=== PATIENT | female | born 1960 | race Hispanic/Latino ===

== ENCOUNTER → 2017-08-04 | Outpatient (CLI) | payer OTHER ==
[~2017-08-04] MED LIST: ABILIFY PO; CLONAZEPAM1 M1 PO; OMEGA 3 FISH O1 EACH PO; PREMPRO 0.3 MG1 EACH PO; SERTRALINE HCL50 MG PO; VIT D PO; ZOLOFT50 MG PO
--- NOTE | 2017-08-04 14:45 | Diagnostic Imaging Report ---
PROCEDURE: Frontal and lateral views of the chest. COMPARISON: Patients [facility], , CHEST 2 VIEWS, 01/30/2013, 16:41. INDICATIONS: BRONCHITIS FINDINGS: Lines/tubes: None. Lungs: The lungs are well inflated and clear. There is no evidence of pneumonia or pulmonary edema. Pleura: There is no pleural effusion or pneumothorax. Heart and mediastinum: The heart and the mediastinum are normal. Bones: No acute bony abnormality. IMPRESSION: 1. No acute cardiopulmonary abnormalities. Kenji Cabezas M.D. Dictated by: Kenji Cabezas M.D. on 08/04/2017 at 14:44 Electronically approved by: Kenji Cabezas M.D. on 08/04/2017 at 14:44
== END ==
LOC: RAD 12:48
DX: J20.9 Acute bronchitis, unspecified (principal)
CPT/HCPCS: 71046

== ENCOUNTER → 2017-09-21 | Outpatient (CLI) | payer OTHER ==
--- NOTE | 2017-09-21 09:45 | Diagnostic Imaging Report ---
EXAM: DXA BONE DENSITY INDICATIONS: SCREENING FOR OSTEOPORSIS COMPARISON: None. FINDINGS: Left femoral neck bone mineral density (BMD) (g/cm2):0.753 Femur T-score (standard deviation relative to young adult mean BMD):-1 Femur Z-score (standard deviation relative to age-matched control group):0.1 Lumbar bone mineral density (BMD) (g/cm2):0.898 Lumbar T-score (standard deviation relative to young adult mean BMD): -1.4 Lumbar Z-score (standard deviation relative to age-matched control group):-0.1 CONCLUSION: WHO bone mineral classification: Low bone mass (osteopenia). 10 year major osteoporotic fracture risk is 3.5%, with hip fracture is 0.2%. World Health Organization Classification: *The Z-score is provided for informational purposes. The T-score is preferable for clinical decisions. RECOMMENDATIONS: Normal \T\ Osteopenia:Calcium supplementation, daily multiple vitamins, and adequate exercise as preventive measures against osteoporosis. Osteoporosis \T\ Severe Osteoporosis:In addition to the above, pharmacologic therapy. Dictated by: Des Crowe M.D. on 09/21/2017 at 9:46 Electronically approved by: Des Crowe M.D. on 09/21/2017 at 9:46
== END ==
LOC: DX 08:28
DX: Z13.820 Encounter for screening for osteoporosis (principal)
CPT/HCPCS: 77080

== ENCOUNTER → 2017-10-17 | Outpatient (CLI) | payer OTHER ==
--- NOTE | 2017-10-17 12:04 | Diagnostic Imaging Report ---
PROCEDURE:SHOULDER COMPLETE BILATERAL INDICATION:Arthritis, right shoulder pain COMPARISON:None. FINDINGS: Right: No acute, displaced fracture or dislocation. The humeral head projects appropriately adjacent to the glenoid. Acromioclavicular and glenohumeral joint spaces are well-maintained. Soft tissues are unremarkable. Left: No acute, displaced fracture or dislocation. The humeral head projects appropriately adjacent to the glenoid. Acromioclavicular and glenohumeral joint spaces are well-maintained. Soft tissues are unremarkable. CONCLUSION: No acute osseous abnormality. Dictated by: Terry Lim M.D. on 10/17/2017 at 12:06 Electronically approved by: Terry Lim M.D. on 10/17/2017 at 12:06
== END ==
LOC: RAD 11:21
PROVIDERS: ATTEND Internal Medicine
DX: M25.511 Pain in right shoulder (principal); M13.812 Other specified arthritis, left shoulder; M13.811 Other specified arthritis, right shoulder

== ENCOUNTER 2018-02-08 15:00 | Outpatient (RCR) | payer OTHER | END 2018-02-17 | LOC: OT 15:00 | PROVIDERS: ATTEND Specialist | DX: M24.611 Ankylosis, right shoulder (principal) ==

== ENCOUNTER 2018-03-09 14:00 | Outpatient (RCR) | payer OTHER | END 2018-03-19 | LOC: OT 14:00 | PROVIDERS: ATTEND Specialist | DX: M24.611 Ankylosis, right shoulder (principal) | CPT/HCPCS: 97139 ==

== ENCOUNTER 2018-04-18 13:56 | Outpatient (RCR) | payer OTHER | END 2018-04-19 | LOC: OT 13:56 | PROVIDERS: ATTEND Specialist | DX: M24.611 Ankylosis, right shoulder (principal); M25.511 Pain in right shoulder; M25.611 Stiffness of right shoulder, not elsewhere classified; R53.1 Weakness ==

== ENCOUNTER 2018-05-02 15:00 | Outpatient (RCR) | payer OTHER ==
[2018-05-18] MEDS ORDERED: PREMPRO 0.3 MG1 EACH PO (12:14)
[2018-05-18] MEDS ORDERED: VIT D3 PO (12:14)
[2018-05-18] MEDS ORDERED: HYDROXYCHLOROQ200 MG PO (12:15)
[2018-05-18] MEDS ORDERED: ULTRAM50 MG PO (12:16)
[2018-05-18] MEDS ORDERED: CLONAZEPAM1 MG PO (12:17)
[2018-05-18] MEDS ORDERED: SERTRALINE HCL50 MG PO (12:17)
== END 2018-05-19 ==
LOC: OT 15:00
PROVIDERS: ATTEND Specialist
DX: M75.01 Adhesive capsulitis of right shoulder (principal)

== ENCOUNTER → 2018-05-22 | Day surgery (SDC) | payer OTHER ==
[~2018-05-22] MED LIST changes: +CEFAZOLIN SOD 2 GM/D5W 50ML 50 ML IV ONE; +CLONAZEPAM1 MG PO; +FENTANYL CITRATE/PF 100MCG/2 ML INJ ONE; +HYDROXYCHLOROQ200 MG PO; +LIDOCAINE HCL 2% LOCAL INJ 5 ML SDV VIAL INJ ONE; +MIDAZOLAM HCL 2 MG/2 ML VIAL ONE; +PROPOFOL IV EMULSION 10 MG/ML 20 ML VIAL ONE; +ULTRAM50 MG PO; +VIT D3 PO
--- OUTSIDE RECORDS SUMMARY | 2018-05-22 10:12 | XMS REPORT ---
Author Author [facility] Address Unknown Phone Unavailable Care Team Providers Care Evening Or Night Nurse Supervisor Name Role Phone AYAN CONTRERAS Unavailable Unavailable PRCIESTACI Unavailable Unavailable Problems This patient has no known problems. Allergies, Adverse Reactions, Alerts This patient has no known allergies or adverse reactions. Medications This patient has no known medications. Results Test Description Test Time Test Comments Text Results Atomic Results Result Comments SHOULDER COMPLETE BILATERAL [place] [id number] [place] [address] Patient Name: MONICA MALIK MR #: [id number] : 1960 Age/Sex: 57/F Req #: [id number] [facility] Physician: Ordered by: AYAN CONTRERAS MD Report #: [id number] Location: [facility] Room/Bed: Procedure: [id number] DX/SHOULDER COMPLETE BILATERAL Exam Date: 10/17/17 Exam Time: 1115 REPORT STATUS: Signed PROCEDURE: SHOULDER COMPLETE BILATERAL INDICATION: Arthritis, right shoulder pain COMPARISON: None. FINDINGS: Right: No acute, displaced fracture or dislocation. The humeral head projects appropriately adjacent to the glenoid. Acromioclavicular and glenohumeral joint spaces are well-maintained. Soft tissues are unremarkable. Left: No acute, displaced fracture or dislocation. The humeral head projects appropriately adjacent to the glenoid. Acromioclavicular and glenohumeral joint spaces are well-maintained. Soft tissues are unremarkable. CONCLUSION: No acute osseous abnormality. Dictated by: Lara Alexis M.D. on 10/17/2017 at 12:06 Electronically approved by: Lara Alexis M.D. on 10/17/2017 at 12:06 Dictated By: LARA ALEXIS MD 05 Transcribed By: NENA on 10/17/17 1206 COPY TO: AYAN CONTRERAS MD BONE DXA DUAL ENERGY [place] [address] Patient Name: MONICA MALIK MR #: [id number] : 1960 Age/Sex: 57/F Req #: [id number] Adm Physician: Ordered by: STACI PRICE MD Report #: [id number] Location: DX Room/Bed: Procedure: [id number] DX/BONE DXA DUAL ENERGY Exam Date: Exam Time: REPORT STATUS: Signed EXAM: DXA BONE DENSITY INDICATIONS: SCREENING FOR OSTEOPORSIS COMPARISON: None. FINDINGS: Left femoral neck bone mineral density (BMD) (g/cm2): 0.753 Femur T-score (standard deviation relative to young adult mean BMD): -1 Femur Z-score (standard deviation relative to age-matched control group): 0.1 Lumbar bone mineral density (BMD) (g/cm2): 0.898 Lumbar T-score (standard deviation relative to young adult mean BMD): -1.4 Lumbar Z-score (standard deviation relative to age-matched control group): -0.1 CONCLUSION: WHO bone mineral classification: Low bone mass (osteopenia). 10 year major osteoporotic fracture risk is 3.5%, with hip fracture is 0.2%. World Health Organization Classification: *The Z-score is provided for informational purposes. The T-score is preferable for clinical decisions. RECOMMENDATIONS: Normal T Osteopenia: Calcium supplementation, daily multiple vitamins, and adequate exercise as preventive measures against osteoporosis. Osteoporosis T Severe Osteoporosis: In addition to the above, pharmacologic therapy. Dictated by: Mary Crowe M.D. on 09/21/2017 at 9:46 Electronically approved by: Deepali Crowe M.D. on 09/21/2017 at 9:46 Dictated By: MARY CROWE MD 5 Transcribed By: NENA on 09/21/17945 COPY TO: STACI PRICE MD CHEST 2 VIEWS [place] [address] Patient Name: MONICA MALIK MR #: [id number] : 1960 Age/Sex: 57/F Req #: [id number] Adm Physician: Ordered by: STACI PRICE MD Report #: [id number] Location: RAD Room/Bed: Procedure: [id number] DX/CHEST 2 VIEWS Exam Date: 08/04/17 Exam Time: 1320 REPORT STATUS: Signed PROCEDURE: Frontal and lateral views of the chest. COMPARISON: [facility], DX, CHEST 2 VIEWS, 01/30/2013, 16:41. INDICATIONS: BRONCHITIS FINDINGS: Lines/tubes: None. Lungs: The lungs are well inflated and clear. There is no evidence of pneumonia or pulmonary edema. Pleura: There is no pleural effusion or pneumothorax. Heart and mediastinum: The heart and the mediastinum are normal. Bones: No acute bony abnormality. IMPRESSION: 1. No acute cardiopulmonary abnormalities. Rey Cabezas M.D. Dictated by: Rey Cabezas M.D. on 08/04/2017 at 14:44 Electronically approved by: Rey Cabezas M.D. on 08/04/2017 at 14:44 Dictated By: REY CABEZAS MD 1444 Transcribed By: NENA on 08/04/17 1444 COPY TO: STACI PRICE MD
[2018-05-22 13:55] VITALS: BP 115/65
--- NOTE | 2018-05-23 16:34 | Operative Report ---
DATE OF PROCEDURE: May 22, 2018 PREOPERATIVE DIAGNOSIS: Adhesive capsulitis right shoulder. POSTOPERATIVE DIAGNOSIS: Adhesive capsulitis right shoulder. PROCEDURES PERFORMED: The patient underwent an 1. Examination of the right shoulder under anesthesia. 2. Manipulation under anesthesia right shoulder. RENTAL SALES AGENT: None. ANESTHESIA: Conscious sedation. OPERATIVE PROCEDURE IN DETAIL: Ms. Lazar was taken to the operating room and placed in the supine position on the [facility]. Following the induction of IV conscious sedation, the patient's right shoulder was examined under anesthesia. She was found to have approximately 135 degrees of passive forward flexion and abduction of the shoulder. There was significant resistance to further forward flexion and abduction of the shoulder. The shoulder was gently manipulated under anesthesia and significant adhesive bands were felt to give way. This resulted in normal full forward flexion and abduction of the shoulder as well as excellent internal rotation of the shoulder joint. There were no mechanical symptoms in the shoulder. The patient tolerated the procedure well. She was awakened and taken to the postanesthesia care unit in stable condition. Job#: [id number] EV
== END | disposition home or self-care (01) ==
LOC: OR 10:10
PROVIDERS: ATTEND Specialist
DX: M75.01 Adhesive capsulitis of right shoulder (principal); S46.091A Other injury of muscle(s) and tendon(s) of the rotator cuff of right shoulder, initial encounter; E03.9 Hypothyroidism, unspecified; F41.9 Anxiety disorder, unspecified; X58.XXXA Exposure to other specified factors, initial encounter; Z01.810 Encounter for preprocedural cardiovascular examination
CPT/HCPCS: 23700; 93005; J0690; J2001; J2250; J2704

== ENCOUNTER → 2018-06-19 | Outpatient (RCR) | payer OTHER ==
[~2018-06-19] MED LIST changes: -CEFAZOLIN SOD 2 GM/D5W 50ML 50 ML IV ONE; -FENTANYL CITRATE/PF 100MCG/2 ML INJ ONE; -LIDOCAINE HCL 2% LOCAL INJ 5 ML SDV VIAL INJ ONE; -MIDAZOLAM HCL 2 MG/2 ML VIAL ONE; -PROPOFOL IV EMULSION 10 MG/ML 20 ML VIAL ONE
== END ==
LOC: OT 05-23 13:48
PROVIDERS: ATTEND Specialist
DX: M75.01 Adhesive capsulitis of right shoulder (principal)

== ENCOUNTER 2018-07-19 13:55 | Outpatient (RCR) | payer OTHER | END 2018-07-20 | LOC: OT 13:55 | PROVIDERS: ATTEND Specialist | DX: M75.01 Adhesive capsulitis of right shoulder (principal) | CPT/HCPCS: 97139 ==

== ENCOUNTER → 2019-12-20 | Day surgery (SDC) | payer OTHER ==
[~2019-12-20] MED LIST changes: +HYOSCYAMINE 0.125 MG TAB ONE; +LIDOCAINE HCL 2% LOCAL INJ 5 ML SDV VIAL INJ ONE; +PROPOFOL IV EMULSION 10 MG/ML 20 ML VIAL ONE; +VIT C PO
[2019-12-20 10:30] VITALS: BP 125/82
--- NOTE | 2019-12-20 12:49 | Operative Report ---
DATE OF PROCEDURE: 12/20/2019 SURGEON: Melchor Luna MD PROCEDURES: EGD with esophageal dilatation and biopsies, and a colonoscopy with biopsies. INDICATIONS FOR EGD: Dysphagia. INDICATIONS FOR COLONOSCOPY: Surveillance colonoscopy, personal history of colon polyps. MEDICATIONS: The patient was done under MAC, please see anesthesiologist's note. PROCEDURE IN DETAIL: With the patient in the left lateral decubitus position, the flexible fiberoptic Olympus gastroscope was introduced into the esophagus under direct visualization without any difficulty. There was some patchy erythema noted in distal esophagus. The esophagus was then dilated to size 52-Fijian Jalloh. The scope was then advanced with ease into the stomach, traversing a small sliding hiatal hernia. The mucosa overlying the antrum and the body revealed some patchy erythema and [id number] edema, and biopsies were obtained, sent to stain for H. pylori. Pylorus was of normal contour and shape, it was intubated with ease and the scope was advanced all the way to the second portion of the duodenum. Biopsies were obtained from the second portion and the duodenal bulb to rule out sprue. The scope was then withdrawn back into the stomach and retroflexed, and mucosa overlying the fundus and cardia appeared to be within normal limits. The scope was then straightened out, it was subsequently withdrawn. The patient tolerated the procedure well. IMPRESSION: 1. Distal esophagitis, mild. 2. Esophagus dilated to size 52-Fijian Jalloh. 3. Small sliding hiatal hernia. 4. Gastritis, biopsied, biopsies sent to stain for H. pylori. 5. Rule out sprue. PLAN: 1. Follow up histology. 2. Continue Protonix 40 mg one p.o. q.a.m. a.c. DESCRIPTION OF PROCEDURE: The patient was then turned around after adequate lubrication of the anal canal, a flexible fiberoptic Olympus colonoscope was inserted into the rectum with ease and advanced all the way to the cecum. Mucosa overlying the cecum appeared to be within normal limits. The ileocecal valve was intubated and the scope was advanced into the terminal ileum. Biopsies were obtained. The scope was then withdrawn back into the colon, it was then withdrawn slowly. Mucosa overlying the ascending and the transverse grossly appeared to be within normal limits. Scattered diverticular disease was noted in the left colon. Loss of vascular markings and low-grade edema was noted in a patchy fashion in the distal descending sigmoid and rectum, and random biopsies were obtained. The scope was then retroflexed into the distal rectum and small internal hemorrhoids were noted, none of which was actively bleeding. The scope was then straightened out, it was subsequently withdrawn. The patient tolerated the procedure well. IMPRESSION: 1. Mild patchy inflammatory changes, left colon. Biopsies obtained. 2. Diverticulosis. 3. Proctitis, mild. 4. Internal hemorrhoids, none actively bleeding. PLAN: 1. Followup histology. 2. Continue Align one p.o. daily. 3. Consider IBD panel, sedimentation rate, and CRP. The patient might benefit from a followup colonoscopy in 5 years. Melchor Luna MD [facility] /[id number] cc: Antoni Luna MD
== END | disposition home or self-care (01) ==
LOC: OR 07:08
PROVIDERS: ATTEND Internal Medicine Gastroenterology
DX: K20.9 Esophagitis, unspecified (principal); Z86.010 Personal history of colon polyps; K29.50 Unspecified chronic gastritis without bleeding; K58.9 Irritable bowel syndrome, unspecified; K44.9 Diaphragmatic hernia without obstruction or gangrene; K57.30 Diverticulosis of large intestine without perforation or abscess without bleeding; K21.9 Gastro-esophageal reflux disease without esophagitis; K62.89 Other specified diseases of anus and rectum; K64.8 Other hemorrhoids; R03.0 Elevated blood-pressure reading, without diagnosis of hypertension; Z01.810 Encounter for preprocedural cardiovascular examination; Z01.812 Encounter for preprocedural laboratory examination; Z11.59 Encounter for screening for other viral diseases; Z68.27 Body mass index [BMI] 27.0-27.9, adult
CPT/HCPCS: 36415; 43239; 43450; 45380; 85651; 86140; 86256; 86671; 87635 ×2; 93005; J2001; J2704; 45378; 45384

== ENCOUNTER → 2021-05-12 | Outpatient (CLI) | payer BC ==
[~2021-05-12] MED LIST changes: -HYOSCYAMINE 0.125 MG TAB ONE; -LIDOCAINE HCL 2% LOCAL INJ 5 ML SDV VIAL INJ ONE; -PROPOFOL IV EMULSION 10 MG/ML 20 ML VIAL ONE
== END ==
LOC: RAD 12:50
DX: R05.3 Chronic cough (principal)
CPT/HCPCS: 71046

== ENCOUNTER → 2021-06-25 | Outpatient (CLI) | payer BC ==
[~2021-06-25] MED LIST changes: +IOPAMIDOL 370 MG/ML 200 ML INFUS..BTL INJ ONE; +SODIUM CHLORIDE 0.9% 50ML 50 ML ONE
[2021-06-25 15:56] LABS: CREATININE, SERUM 0.7 mg/dL (0.57-1.11)
== END ==
LOC: CT 15:19
PROVIDERS: ATTEND Internal Medicine Gastroenterology
DX: R10.32 Left lower quadrant pain (principal); K29.60 Other gastritis without bleeding
CPT/HCPCS: 36415; 74177; 82565; 84520; Q9967

== ENCOUNTER → 2021-06-30 | Outpatient (CLI) | payer BC ==
[~2021-06-30] MED LIST changes: -IOPAMIDOL 370 MG/ML 200 ML INFUS..BTL INJ ONE; -SODIUM CHLORIDE 0.9% 50ML 50 ML ONE
== END ==
LOC: DX 08:27
PROVIDERS: ATTEND Internal Medicine Gastroenterology
DX: R10.32 Left lower quadrant pain (principal); K29.60 Other gastritis without bleeding
CPT/HCPCS: 74250; U0002

== ENCOUNTER → 2021-10-07 | Day surgery (SDC) | payer BC ==
[~2021-10-07] MED LIST changes: +FENTANYL CITRATE/PF 100MCG/2 ML INJ ONE; +FOLIC ACID0.4 MG PO; +GOLI APPLE CIDER PO; +HYOSCYAMINE SULFATE 0.5 MG/ML INJ ONE; +LEVOTHYROXINE50 MCG PO; +LIDOCAINE HCL 2% LOCAL INJ 5 ML SDV VIAL INJ ONE; +METHOTREXATE 1 G1 GM INJ; +MIDAZOLAM HCL 2 MG/2 ML VIAL ONE; +PROPOFOL IV EMULSION 10 MG/ML 20 ML VIAL ONE
[2021-10-07 14:48] VITALS: BP 136/81
[2021-10-09 11:13] LABS: ENDOMYSIAL ANTIBODIES, IGA Negative (Negative)
== END | disposition home or self-care (01) ==
LOC: OR 09:42
PROVIDERS: ATTEND Internal Medicine Gastroenterology
DX: K20.90 Esophagitis, unspecified without bleeding (principal); Z86.010 Personal history of colon polyps; K29.50 Unspecified chronic gastritis without bleeding; K25.9 Gastric ulcer, unspecified as acute or chronic, without hemorrhage or perforation; K63.89 Other specified diseases of intestine; K44.9 Diaphragmatic hernia without obstruction or gangrene; K21.9 Gastro-esophageal reflux disease without esophagitis; K57.30 Diverticulosis of large intestine without perforation or abscess without bleeding; K64.8 Other hemorrhoids; Z71.3 Dietary counseling and surveillance; R03.0 Elevated blood-pressure reading, without diagnosis of hypertension; E03.9 Hypothyroidism, unspecified; R05.9 Cough, unspecified; F41.9 Anxiety disorder, unspecified; Z01.810 Encounter for preprocedural cardiovascular examination; Z01.812 Encounter for preprocedural laboratory examination; Z20.822 Contact with and (suspected) exposure to COVID-19; Z79.899 Other long term (current) drug therapy; Z68.27 Body mass index [BMI] 27.0-27.9, adult; Z90.49 Acquired absence of other specified parts of digestive tract
CPT/HCPCS: 43239; 45380; 82784; 83516; 86256; 93005; C9113; J1980; J2001; J2250; J2704; J3010; U0002; 45378

== ENCOUNTER 2022-11-19 12:18 | Emergency (ER) | payer OTHER, BC ==
[~2022-11-19] VITALS: Ht 157.5 cm; Wt 58.1 kg
[~2022-11-19 12:18] MED LIST changes: -FENTANYL CITRATE/PF 100MCG/2 ML INJ ONE; -HYOSCYAMINE SULFATE 0.5 MG/ML INJ ONE; -LIDOCAINE HCL 2% LOCAL INJ 5 ML SDV VIAL INJ ONE; -MIDAZOLAM HCL 2 MG/2 ML VIAL ONE; -PROPOFOL IV EMULSION 10 MG/ML 20 ML VIAL ONE
[2022-11-19 12:48] VITALS: O2SAT 98
[2022-11-19] MEDS ORDERED: HYDROCODONE/APAP 5MG-325MG TAB PO ONE (13:45)
[2022-11-19] MEDS ORDERED: HYDROCODONE/APAP 5MG-325MG TAB ONE (14:24)
[2022-11-19] MEDS ORDERED: IBUPROFEN 600 MG TAB ONE (14:32)
[2022-11-19] MEDS ORDERED: IBUPROFEN600 MG PO (15:01)
== END 2022-11-19 15:35 | disposition home or self-care (01) ==
LOC: ER 12:32
DX: S92.354A Nondisplaced fracture of fifth metatarsal bone, right foot, initial encounter for closed fracture (principal); M54.50 Low back pain, unspecified; S30.0XXA Contusion of lower back and pelvis, initial encounter; S50.01XA Contusion of right elbow, initial encounter; W10.8XXA Fall (on) (from) other stairs and steps, initial encounter; Y93.01 Activity, walking, marching and hiking; Y92.89 Other specified places as the place of occurrence of the external cause; E05.90 Thyrotoxicosis, unspecified without thyrotoxic crisis or storm
CPT/HCPCS: 72100; 99284